=== PATIENT | male | born 1950 | race Caucasian/White ===

== ENCOUNTER 2016-11-05 07:57 | Emergency (ER) | payer MEDICARE ==
[~2016-11-05] VITALS: Ht 185.4 cm; Wt 117.0 kg
[~2016-11-05 07:57] MED LIST: LISI-363 PO
[2016-11-05 08:02] VITALS: BP 154/84; PULSE 76; RESP 16; TEMP 98.4; O2SAT 99
[2016-11-05] MEDS ORDERED: LISI-515 PO (08:13)
[2016-11-05 08:20] VITALS: BP 127/81; PULSE 75; RESP 18; O2SAT 98
--- NOTE | 2016-11-05 08:45 | PD ---
HPI Chief Complaint: Numbness/Tingling Time Seen by Provider: 08:19 Travel History International Travel<30 days: No Contact w/Intl Traveler<30days: No Traveled to known affect area: No History of Present Illness HPI This patient complains of paresthesias in his right hand. Duration 2 hours. He has no muscle weakness or sensory loss. He has chronic neck problems with chronic pain and stiffness. He has disc herniation at C5. His at 3 facet injections at [facility]. He often gets tightness and mild paresthesias in the region of the right upper arm and right lower arm. However this was more pronounced than usual. He is not having headache or head injury. No mental status changes. No alleviating factors. Symptoms severity is mild. PFSH Past Medical History Hx Anticoagulant Therapy: No Arthritis: No Asthma: No Autoimmune Disease: No Blood Disorders: No Anxiety: No Depression: No Heart Rhythm Problems: No Cancer: No Cardiovascular Problems: Yes (HTN ) High Cholesterol: No Chemotherapy: No Chest Pain: No Congestive Heart Failure: No COPD: No Cerebrovascular Accident: No Diabetes: No Endocrine: No GERD: No Glaucoma: No Genitourinary: No Headaches: No Hepatitis: No Hiatal Hernia: No Hypertension: Yes Immune Disorder: No Kidney Stones: No Musculoskeletal: No Neurologic: No Psychiatric: No Respiratory: No Myocardial Infarction: No Radiation Therapy: No Renal Failure: No Seizures: No Sickle Cell Disease: No Sleep Apnea: No Thyroid Disease: No Ulcer: No Past Surgical History Abdominal Surgery: No AICD: No Cardiac Surgery: No Ear Surgery: No Endocrine Surgery: No Eye Surgery: No Genitourinary Surgery: No Gynecologic Surgery: No Joint Replacement: No Oral Surgery: No Pacemaker: No Thoracic Surgery: No Other Surgery: Yes (DENTAL IMPLANTS ) Social History Alcohol Use: Yes (OCC) Tobacco Use: No Substance Use: No Allergies-Medications (Allergen,Severity, Reaction): Coded Allergies: [place] (Verified Allergy, Unknown, Hives, 11/05/16) Reported Meds & Prescriptions Reported Meds & Active Scripts Active Reported Lisinopril 20 Mg Tab 20 Mg PO DAILY Review of Systems General / Constitutional: No: Fever Eyes: No: Visual changes HENT: No: Headaches Cardiovascular: No: Chest Pain or Discomfort Respiratory: No: Shortness of Breath Gastrointestinal: No: Abdominal Pain Genitourinary: No: Dysuria Musculoskeletal: No: Pain Skin: No Rash Neurologic: Positive: Paresthesia, No: Weakness Psychiatric: No: Depression Endocrine: No: Polydipsia Hematologic/Lymphatic: No: Easy Bruising Physical Exam Narrative GENERAL: Well-nourished, well-developed patient in no apparent distress. SKIN: Focused skin assessment reveals no rash and nodules. Skin is Warm and dry. HEAD: Atraumatic. Normocephalic. EYES: Pupils equal and round. No scleral icterus. No injection or drainage. ENT: No nasal bleeding or discharge. Mucous membranes pink and moist. NECK: Trachea midline. No JVD. No midline tenderness CARDIOVASCULAR: Regular rate and rhythm. No murmur appreciated. RESPIRATORY: No accessory muscle use. Clear to auscultation. Breath sounds equal bilaterally. GASTROINTESTINAL: Abdomen soft, non-tender, nondistended. Hepatic and splenic margins not palpable. MUSCULOSKELETAL: No obvious deformities. No clubbing. No cyanosis. No edema. NEUROLOGICAL: Awake and alert. No obvious cranial nerve deficits. Motor grossly within normal limits. Normal speech. Sensation is intact to sharp and light touch. He has subjective paresthesias in the right hand rather diffusely that started about the level of the wrist. PSYCHIATRIC: Appropriate mood and affect; insight and judgment normal. Data Data Last Documented VS Vital Signs Date Time Temp Pulse Resp B/P Pulse Ox O2 Delivery O2 Flow Rate FiO2 11/05/16 08:20 75 18 127/81 98 11/05/16 08:[address] Brain W/O Iv Contrast(Rout) (11/05/16 ) [facility] Medical Decision Making Medical Screen Exam Complete: Yes Emergency Medical Condition: Yes Medical Record Reviewed: Yes Differential Diagnosis Paresthesia, neuropathy, disc herniation, CVA Narrative Course I have reviewed the patient's electronic medical record. Reviewed his 2015 visit when he had extensive workup for similar presentation on the left side. He had a one-time follow-up with Dr. Reyna afterwards but hasn't been back since No objective findings on exam He has normal vital signs Brain CT is discussed with radiologist Dr. olmedo. There is nothing acute. This patient's symptoms seem consistent with a peripheral neuropathy and not a acute stroke. When I reassessed him his symptoms have completely resolved and he says his paresthesias gone. I don't think he requires admission for neurologic evaluation. He should follow -up with a neurologist He plans to call Dr. Reyna who he saw in the past on a one-time basis Diagnosis Primary Impression: Peripheral neuropathy Qualified Code: G58.8 - Other mononeuropathy Additional Impression: Paresthesia of arm Additional Instructions: Follow-up with primary care and neurologist Med/Other Pt SpecificInfo: Other Disposition: 01 DISCHARGE HOME Condition: Stable Chandan Clayton MD Nov 05, 2016 08:45
--- NOTE | 2016-11-05 09:08 | RADRPT ---
EXAM DATE/TIME: 11/05/2016 08:53 [facility] COMPARISON: CT BRAIN W/O CONTRAST, December 31, 2014, 13:06. INDICATIONS : Right arm weakness. RADIATION DOSE: 56.35 CTDIvol (mGy) MEDICAL HISTORY : Cardiovascular disease. Hypertension. SURGICAL HISTORY : None. ENCOUNTER: Initial ACUITY: 1 day PAIN SCALE: 0/10 LOCATION: cranial TECHNIQUE: Multiple contiguous axial images were obtained of the head. Using automated exposure control and adj ustment of the mA and/or kV according to patient size, radiation dose was kept as low as reasonably a chievable to obtain optimal diagnostic quality images. DICOM format image data is available electro nically for review and comparison. FINDINGS: CEREBRUM: The ventricles are normal for age. No evidence of midline shift, mass lesion, hemorrhage or acute in farction. No extra-axial fluid collections are seen. POSTERIOR FOSSA: The cerebellum and brainstem are intact. The 4th ventricle is midline. The cerebellopontine angle i s unremarkable. EXTRACRANIAL: The visualized portion of the orbits is intact. SKULL: The calvaria is intact. No evidence of skull fracture. CONCLUSION: Negative for an acute process. Previous MRI had read suspicion of demyelinating proc ess. Hang Hdz MD FACR on November 05, 2016 at 9:05 Board Certified Radiologist. This report was verified electronically.
== END 2016-11-05 12:05 | disposition home or self-care (01) ==
LOC: NEPC 07:57
DX: G62.9 Polyneuropathy, unspecified (principal); R20.9 Unspecified disturbances of skin sensation; I10 Essential (primary) hypertension; Z79.899 Other long term (current) drug therapy
CPT/HCPCS: 70450; 99284

== ENCOUNTER 2017-01-21 13:31 | Emergency (ER) | payer MEDICARE ==
[~2017-01-21] VITALS: Ht 188 cm; Wt 115.0 kg
[~2017-01-21 13:31] MED LIST changes: -LISI-363 PO; +LISI-515 PO
[2017-01-21 13:33] VITALS: BP 139/80; PULSE 99; RESP 17; TEMP 98; O2SAT 99
[2017-01-21] MEDS ORDERED: AMOXICILLIN/CLAVULANATE K 875 MG TAB PO ONE (14:00)
[2017-01-21] MEDS ORDERED: TETANUS/DIPHTHERIA TOXOID ADULT 0.5 ML VIAL IM ONE (14:00)
[2017-01-21] MEDS ORDERED: AUGM875T3 PO (14:05)
[2017-01-21] MEDS ORDERED: IBUP800T23 PO (14:05)
--- NOTE | 2017-01-21 14:05 | PD ---
HPI Chief Complaint: Laceration/Skin Injury Time Seen by Provider: 13:55 Travel History International Travel<30 days: No Contact w/Intl Traveler<30days: No Traveled to known affect area: No History of Present Illness HPI Patient is a 66-year-old male presenting to emergency evaluation of a laceration to his right wrist that he sustained as result of a dog bite. Patient states his own dog bit him when he got spooked. Dog was up-to-date with immunizations. Patient is uncertain when his last tetanus vaccine was administered. He reports minimal pain. He denies any weakness or paresthesia. PFSH Past Medical History Hx Anticoagulant Therapy: No Arthritis: No Asthma: No Autoimmune Disease: No Blood Disorders: No Anxiety: No Depression: No Heart Rhythm Problems: No Cancer: No Cardiovascular Problems: No High Cholesterol: No Chemotherapy: No Chest Pain: No Congestive Heart Failure: No COPD: No Cerebrovascular Accident: No Diabetes: No Endocrine: No GERD: No Glaucoma: No Genitourinary: No Headaches: No Hepatitis: No Hiatal Hernia: No Hypertension: Yes Immune Disorder: No Kidney Stones: No Musculoskeletal: No Neurologic: No Psychiatric: No Respiratory: No Myocardial Infarction: No Radiation Therapy: No Renal Failure: No Seizures: No Sickle Cell Disease: No Sleep Apnea: No Thyroid Disease: No Ulcer: No ?: Not Past Surgical History Abdominal Surgery: No AICD: No Cardiac Surgery: No Ear Surgery: No Endocrine Surgery: No Eye Surgery: No Genitourinary Surgery: No Gynecologic Surgery: No Hysterectomy: No Joint Replacement: No Oral Surgery: No Pacemaker: No Thoracic Surgery: No Other Surgery: Yes (DENTAL IMPLANTS ) Social History Alcohol Use: Yes (OCC) Tobacco Use: No Substance Use: No Allergies-Medications (Allergen,Severity, Reaction): Coded Allergies: frances (Unverified Allergy, Unknown, Hives, 01/21/17) Reported Meds & Prescriptions Reported Meds & Active Scripts Active Ibuprofen 800 Mg Tab 800 Mg PO Q8H PRN Augmentin (Amoxicillin-Clavulanate) 875-125 Mg Tab 1 Tab PO BID Reported Lisinopril 20 Mg Tab 20 Mg PO DAILY Review of Systems Except as stated in HPI: all other systems reviewed are Neg Skin: Positive Other (laceration, dog bite) Physical Exam Narrative GENERAL: Well-developed, well-nourished, alert male. Resting comfortably. Distress. SKIN: Warm and dry. 3 cm superficial laceration to the inner aspect of the right wrist, there is a 1 cm skin avulsion proximal to the laceration. HEAD: Normocephalic. EYES: No scleral icterus. No injection or drainage. NECK: Supple, trachea midline. No JVD or lymphadenopathy. CARDIOVASCULAR: Regular rate and rhythm without murmurs, gallops, or rubs. RESPIRATORY: Breath sounds equal bilaterally. No accessory muscle use. GASTROINTESTINAL: Abdomen soft, non-tender, nondistended. MUSCULOSKELETAL: No cyanosis, or edema. Full range of motion right hand, 5/5 front elevator operator strength. 2+ radial pulse. BACK: Nontender without obvious deformity. No CVA tenderness. Data Data Last Documented VS Vital Signs Date Time Temp Pulse Resp B/P (MAP) Pulse Ox O2 Delivery O2 Flow Rate FiO2 01/21/17 13:33 98.0 99 17 139/80 (99) 99 Orders Orders Amoxicil-Clavulanate (Augmentin) (01/21/17 14:00) Tetanus/Diphtheria Tox Adult (Tetanus/Di (01/21/17 14:00) MDM Medical Decision Making Medical Screen Exam Complete: Yes Emergency Medical Condition: Yes Interpretation(s) Vital Signs Date Time Temp Pulse Resp B/P (MAP) Pulse Ox O2 Delivery O2 Flow Rate FiO2 01/21/17 13:33 98.0 99 17 139/80 (99) 99 Differential Diagnosis Tendon injury versus laceration versus puncture wound versus Narrative Course Patient is 66-year-old male presenting for evaluation after a dog bite was sustained prior to arrival. Child is up-to-date with immunizations, patient was given tetanus vaccine emergency department. Patient's vital signs are stable. He is neurovascularly intact. Please see procedure performed laceration repair. Patient was given first dose of Augmentin in the emergency department. He was given another prescription complete full course of therapy. He was educated on the signs and symptoms of infection. He was advised to just only removed in 7-10 days. He is encouraged to return to emergency department follow-up with his primary doctor. Patient verbalized understanding of instructions. Patient stable for discharge. Procedures Procedure Narrative LACERATION LOCATION: Right wrist LENGTH: 3 cm NUMBER OF STITCHES/MILE: 4 stitches REPAIR: The area of the laceration was prepped with Betadine and sterilely draped. The laceration was infiltrated with 1% Xylocaine. The wound was copiously irrigated and explored without evidence of foreign body, tendon injury or neurovascular injury. The wound was closed using 4-0 Ethilon. This was a 1 layer repair. A sterile dressing was applied. The patient was advised to keep the dressing clean and dry. Patient tolerated the procedure well. Diagnosis Primary Impression: Dog bite Qualified Codes: W54.0XXA - Bitten by dog, initial encounter Additional Impression: Laceration of wrist Qualified Codes: S61.511A - Laceration without foreign body of right wrist, initial encounter Referrals: Primary Care Physician 1 week Patient Instructions: Animal Bite (ED), Care For Your Stitches (DC), General Instructions Additional Instructions: Written instructions given to patient on discharge Med/Other Pt SpecificInfo: Prescription(s) given Scripts Ibuprofen (Ibuprofen) 800 Mg Tab 800 MG PO Q8H Y for Pain/Inflammation, #30 TAB 0 Refills Prov: Stephanie Stanton 01/21/17 Amoxicillin-Clavulanate (Augmentin) 875-125 Mg Tab 1 TAB PO BID for Infection, #20 TAB 0 Refills Prov: Stephanie Stanton 01/21/17 Disposition: 01 DISCHARGE HOME Condition: Stable Stephanie Stanton Jan 21, 2017 14:05
== END 2017-01-21 14:47 | disposition home or self-care (01) ==
LOC: EDTENT 13:31
DX: S61.511A Laceration without foreign body of right wrist, initial encounter (principal); I10 Essential (primary) hypertension; Z23 Encounter for immunization; W54.0XXA Bitten by dog, initial encounter
CPT/HCPCS: 12002; 90471; 90714

== ENCOUNTER → 2017-07-11 | Day surgery (SDC) | payer MEDICARE, BC ==
[~2017-07-11] VITALS: Ht 188 cm; Wt 113.5 kg
[~2017-07-11] MED LIST changes: +*ONDANSETRON 4 MG VIAL PERIprocedural Use ONLY ONE; +*morphine SULFATE 4 MG/ML PERIprocedure ONLY ONE; +ACETAMINOPHEN/HYDROcodone 325 MG/5 MG TAB ONE; +AMPICILLIN-SULBACTAM INJ 3 GM VIAL IV ONE; +AMPICILLIN-SULBACTAM INJ 3 GM in SODIUM CHLORIDE 0.9% INJ 100 ML IV ONE; +AUGM875T3 PO; +BACITRACIN TOP OINT 15 GM TUBE ONE; +BUPIVACAINE HCL PF 0.5% 30 ML VIAL ONE; +CHLORHEXIDINE GLUCONATE 2 % 1 PACK (2 CLOTHS) TOPICAL PRN; +DEXAMETHASONE SOD PHOS 4 MG/ML VIAL IV ONE; +DO NOT ADM ANY ANTICOAGULANT DRUGS PRN; +IBUP1TAB7 PO; +LACTATED RINGER'S 1000 ML IV PRN; +LIDOCAINE HCL 1% 20 ML VIAL ONE; +LIDOCAINE HCL 1% 30 ML VIAL INFIL ONE; +LIDOCAINE HCL 1% PF 5 ML SYRINGE OTHER ONE; +LIDOCAINE HCL 2% 50 ML VIAL ONE; +LISI10TA3 PO; +METOPROLOL TARTRATE 25 MG TAB PO PRN; +MIDAZOLAM HCL 2 MG/2 ML VIAL ONE; +MORPHINE SULFATE 4 MG/ML INJ IV PUSH ONE; +NEOMYCIN/POLYMYXIN 1 ML G.U. IRRIGANT ONE; +ONDANSETRON HCL 4 MG/2 ML VIAL IV ONE; +ONDANSETRON HCL 4 MG/2 ML VIAL IV PUSH ONE; +PHENYLEPH/NS 1000 MCG/10 ML SYR IV ONE; +POVIDONE IODINE 5% (ANTISEPSIS KIT) 4 APPLICATIONS EACH NARE PRN; +PROCHLORPERAZINE INJ 10 MG/2 ML VIAL ONE; +PROPOFOL 200 MG/20 ML AMP IV ONE; +SODIUM CHLORID 0.9% 500 ML IV PRN; +ceFAZolin 2 GM PREMIX 50 ML IV ONE; +ePHEDrine/NS 25 MG/5 ML SYRINGE IV ONE
[2017-07-11 10:06] VITALS: BP 170/86; PULSE 77; RESP 20; TEMP 98.7; O2SAT 100
--- NOTE | 2017-07-11 10:59 | RADRPT ---
EXAM DATE/TIME: 07/11/2017 10:31 [facility] COMPARISON: No previous studies available for comparison. INDICATIONS : Left hand pain. Laceration to left hand, second digit. MEDICAL HISTORY : None. SURGICAL HISTORY : None. ENCOUNTER: Initial ACUITY: 1 day PAIN SCORE: 6/10 LOCATION: Left hand, second digit FINDINGS: Examination of the second digit of the left hand demonstrates partial soft tissue amputation of the t ip of the second finger. There is a small bone fragment placed radially. Rest of study is unremarkabl e.. CONCLUSION: Soft tissue laceration of the tip of the second finger. Rodney Moon MD on July 11, 2017 at 10:57 Board Certified Radiologist. This report was verified electronically.
--- NOTE | 2017-07-11 11:21 | PD ---
HPI Chief Complaint: Injury Time Seen by Provider: 10:19 Travel History International Travel<30 days: No Contact w/Intl Traveler<30days: No Traveled to known affect area: No History of Present Illness HPI 67-year-old male came to the emergency room with history of injuring his left index finger while trying to hammer and nail and accidentally hammering his finger. This happened just prior to coming to the emergency room. Patient is complaining of some pain. He is right handed. There is some active bleeding. Patient wrapped it with a kitchen towel and came to the emergency room. His last tetanus was in 2011. Vital signs otherwise stable. Patient is not on any blood thinners. He is not a smoker. [facility] Past Medical History Narrative Medical List of his past medical, surgical, social and family history is reviewed from the nursing note. Hx Anticoagulant Therapy: No Arthritis: No Asthma: No Autoimmune Disease: No Blood Disorders: No Anxiety: No Depression: No Heart Rhythm Problems: No Cancer: No Cardiovascular Problems: No High Cholesterol: No Chemotherapy: No Chest Pain: No Congestive Heart Failure: No COPD: No Cerebrovascular Accident: No Diabetes: No Endocrine: No GERD: No Glaucoma: No Genitourinary: No Headaches: No Hepatitis: No Hiatal Hernia: No Hypertension: Yes Immune Disorder: No Kidney Stones: No Musculoskeletal: No Neurologic: No Psychiatric: No Respiratory: No Myocardial Infarction: No Radiation Therapy: No Renal Failure: No Seizures: No Sickle Cell Disease: No Sleep Apnea: No Thyroid Disease: No Ulcer: No Tetanus Vaccination: < 5 Years Influenza Vaccination: Yes Past Surgical History Abdominal Surgery: No AICD: No Cardiac Surgery: No Ear Surgery: No Endocrine Surgery: No Eye Surgery: No Genitourinary Surgery: No Gynecologic Surgery: No Hysterectomy: No Joint Replacement: No Oral Surgery: No Pacemaker: No Thoracic Surgery: No Other Surgery: Yes (DENTAL IMPLANTS ) Social History Alcohol Use: Yes (OCC) Tobacco Use: No Substance Use: No Allergies-Medications (Allergen,Severity, Reaction): Coded Allergies: frances (Unverified Allergy, Unknown, Hives, 07/11/17) Comments List of his allergies reviewed from the nursing note. Reported Meds & Prescriptions Reported Meds & Active Scripts Active Reported Lisinopril 10 Mg Tab 10 Mg PO DAILY Narrative Medication List of his home medications reviewed from the nursing note. Review of Systems Except as stated in HPI: all other systems reviewed are Neg Physical Exam Narrative GENERAL: Awake, alert, no obvious distress SKIN: Focused skin assessment warm/dry. Left index fingertip is macerated with some exposed bone and oozing blood. No nail can be seen. HEAD: Atraumatic. Normocephalic. EYES: Pupils equal and round. No scleral icterus. No injection or drainage. ENT: No nasal bleeding or discharge. Mucous membranes pink and moist. NECK: Trachea midline. No JVD. CARDIOVASCULAR: Regular rate and rhythm. No murmur appreciated. RESPIRATORY: No accessory muscle use. Clear to auscultation. Breath sounds equal bilaterally. GASTROINTESTINAL: Abdomen soft, non-tender, nondistended. Hepatic and splenic margins not palpable. MUSCULOSKELETAL: No obvious deformities. No clubbing. No cyanosis. No edema. NEUROLOGICAL: Awake and alert. No obvious cranial nerve deficits. Motor grossly within normal limits. Normal speech. PSYCHIATRIC: Appropriate mood and affect; insight and judgment normal. Data Data Last Documented VS Vital Signs Date Time Temp Pulse Resp B/P (MAP) Pulse Ox O2 Delivery O2 Flow Rate FiO2 07/11/17 10:09 18 100 Room Air 07/11/17 10:06 98.7 77 170/86 (114) Orders Orders Finger ([id number]) (07/11/17 ) Cefazolin 2 Gm Premix (Ancef 2 Gm Premix (07/11/17 10:30) Morphine Inj (Morphine Inj) (07/11/17 10:30) Ondansetron Inj (Zofran Inj) (07/11/17 10:30) Lidocaine 1% Inj (Xylocaine 1% Inj) (07/11/17 11:15) Lidocaine 1% Inj (Xylocaine 1% Inj) (07/11/17 11:33) Ampicillin-Sulbactam Inj (Unasyn Inj) (07/11/17 11:45) Morphine Inj (Morphine Inj) (07/11/17 11:45) Lidocaine 1% Inj (Xylocaine 1% Inj) (07/11/17 11:35) Diet Npo (07/11/17 Lunch) Admit Order (Ed Use Only) (07/11/17 12:07) MDM Medical Decision Making Medical Screen Exam Complete: Yes Emergency Medical Condition: Yes Medical Record Reviewed: Yes Differential Diagnosis Distal fingertip amputation, distal phalanx fracture Narrative Course 11:17 AM x-ray shows the distal tip of the soft tissue amputated. The bone tip of the distal phalanx is exposed. I will repair the wound. Please refer to my procedure note. Patient was given antibiotic IV and pain medication. 11:33 AM the hand Surgeon Dr. Padilla called back and is considering taking the patient to the OR. Meanwhile the patient just confessed that his dog bit the fingertip off when he was trying to get the food bowl from him. He didn't say anything initially because he didn't want his dog to get in trouble. I will order IV Unasyn knowing this at this point and some more pain medication. Patient says the pain is coming back. 11:56 AM next patient will be taken to the OR by the hand surgeon. He wants the patient nothing by mouth in the meanwhile. Procedures EKG Prior to Arrival: No Physician Communication Physician Communication Dr. Padilla Diagnosis Primary Impression: Finger amputation, traumatic Qualified Codes: S68.119A - Complete traumatic metacarpophalangeal amputation of unspecified finger, initial encounter Additional Impression: Dog bite Qualified Codes: W54.0XXA - Bitten by dog, initial encounter Admitting Information Admitting Physician Requests: Observation Troy Fraire MD Jul 11, 2017 11:21
--- NOTE | 2017-07-11 14:56 | MB ---
cc: Rick Boykin MD DATE OF CONSULT: 07/11/2017 REASON FOR CONSULTATION: Left index finger injury. HISTORY OF PRESENT ILLNESS: The patient is a 67-year-old [id number] male who presented with complaints of laceration of the left index finger this morning. Patient states he has a bulldog, which lacerated the left index finger. Patient complains of a wound over the left index finger with associated bleeding. He also complains of loss of nail bed. Denies any other injuries. Denies any tingling or numbness over the pulp region. PAST MEDICAL AND SURGICAL HISTORY: Reviewed and nonsignificant. PHYSICAL EXAMINATION: GENERAL: Patient is alert, oriented x3. EXTREMITIES: Examination of left hand/index finger reveals a dorsal oblique/transverse amputation over the left index fingertip involving the hyponychium and the nail bed. There is loss of nail plate and the laceration extends to the nail bed region. Mild oozing from the region noted. No evidence of nail plate noted. Exposed distal phalanx noted over the tip. The patient has intact circulation over the pulp region. He has intact sensation over the pulp. He has intact flexion and extension at the index finger distal interphalangeal joint. IMAGING: X-rays of the left hand/index finger reveals transverse amputation through the soft tissue and distal phalanx tuft fracture left index finger. ASSESSMENT: A 67-year-old male with partial traumatic amputation left index fingertip with exposed distal phalanx. PLAN: To take the patient emergently for wash debridement now, provision amputation versus flap closure of the left index finger. Patient has been explained risks and benefits of the procedure. Rick Boykin MD SE/jewels , 02:36 PM , 02:55 PM
--- NOTE | 2017-07-11 16:12 | PD.OP ---
Operative Report Preoperative Diagnosis: (1) Partial traumatic transphalangeal amputation of left index finger, initial encounter Postoperative Diagnosis: (1) Partial traumatic transphalangeal amputation of left index finger, initial encounter Procedure: exploration, wash, debridement and V-Y plasty flap closure left index finger Anesthesia: general Surgeon: Rick Boykin Rfid Systems Engineer(s): tory Operation and Findings: dorsal oblique amputation with loss of hyponychium, nail plate and distal half of the nail bed distal phalanx tuft fracture left index finger Rick Boykin MD Jul 11, 2017 16:12
--- NOTE | 2017-07-11 17:38 | MP ---
cc: Rick Boykin MD DATE OF OPERATION: 07/11/2017 PREOPERATIVE DIAGNOSIS: Partial traumatic amputation, left index fingertip. POSTOPERATIVE DIAGNOSIS: Partial traumatic amputation with exposed distal phalanx, left index fingertip. PROCEDURE: Exploration, wash, debridement and V-Y plasty flap closure, left index finger. SURGEON: Rick Connolly MD ANESTHESIA: General. ESTIMATED BLOOD LOSS: Minimal. TOURNIQUET: 46 minutes at 250 mmHg. COMPLICATIONS: None. The patient was taken to PACU in stable condition. The patient is a 67-year-old male who presented to the ED with complaints of dog bite to the left index finger this morning. On examination, he had a dorsal oblique amputation with the loss of hyponychium, nail plate and nail bed with exposed distal phalanx. X-ray showed amputation of the soft tissue with open fracture of the distal phalanx tuft. Patient was consented for exploration, revision amputation, possible flap closure left index finger. Patient was explained the risks and benefits of the procedure. INTRAOPERATIVE FINDINGS: Complete loss of the nail plate, complete loss of distal half of the nail bed with exposed dorsal and distal surface of the distal phalanx and loss of distal tuft of the distal phalanx. Partial loss of the hyponychium was also noted. The tip of the distal phalanx was rongeured to obtain closure of the bone because of loss of distal half of nail plate and inability to mobilize the remaining pulp to cover the bone. Decision was made to proceed with V-Y plasty. PROCEDURE: Patient was brought to the operating room. Under general anesthesia, the left upper extremity was thoroughly prepped and draped. Skin incision was marked in an inverted V fashion over the pulp at the base starting at the partial traumatic amputation site. The limb was exsanguinated using an Esmarch tourniquet, tourniquet inflated to 250 mmHg. Incision was then made over the proposed incision site where soft tissue dissection was carried out. The bands over the pulp tissue were released with sharp dissection. The flap was then elevated from the distal phalanx volar surface by sharp dissection. All the bands holding the flap were transected. The neurovascular bundle was protected. The flap was then mobilized. I was able to obtain complete coverage of the distal phalanx after mobilization of the flap. Initially the V was converted as a Y and 2 horizontal mattress stitches were applied at the proximal part of the incision. The flap was then mobilized and held to the dorsal aspect by 5-0 nylon stitch through the remaining nail bed. The rest of the incision was closed with multiple 5-0 nylon stitches in a horizontal mattress interrupted fashion. Prior to flap closure, the wound was thoroughly washed with normal saline mixed with irrigant. About 1 liter of solution was used. After obtaining closure of the distal phalanx, the tourniquet was deflated, total tourniquet time was 46 minutes. Patient had delayed capillary refill of the flap. The stitch holding at the V-Y junction was removed. Partial filling of the flap was noted at the proximal half of the flap. The finger was kept warm with normal saline. The 2 distal-most sutures of the corners were then released and this was then followed by good capillary refill of the flap. After ensuring good capillary refill of the flap, Xeroform/Bacitracin dressing applied. Bulky finger dressing was applied, which was held in place by soft roll and a Kindra. Patient was in stable condition. Patient will be discharged home on p.o. antibiotics. I will see him in the office in 2-3 days' time. Rick Boykin MD SE/RAE/jones , 04:18 PM , 05:23 PM
[2017-07-11 18:30] VITALS: BP 120/53; PULSE 87; RESP 16; TEMP 98.5; O2SAT 96
== END | disposition home or self-care (01) ==
LOC: NEPD 09:54 → HSDC 12:08
PROVIDERS: ATTEND Surgery Surgery of the Hand
DX: S68.120A Partial traumatic metacarpophalangeal amputation of right index finger, initial encounter (principal); W54.0XXA Bitten by dog, initial encounter
CPT/HCPCS: 01830; 26952; 73140; 96365; 96367; 96375; 96376; 99284; J0295; J0690; J0780; J1100; J2250; J2270; J2370; J2405; J3010

== ENCOUNTER 2017-08-21 18:55 | Emergency (ER) | payer MEDICARE, BC ==
[~2017-08-21 18:55] MED LIST changes: -*ONDANSETRON 4 MG VIAL PERIprocedural Use ONLY ONE; -*morphine SULFATE 4 MG/ML PERIprocedure ONLY ONE; -ACETAMINOPHEN/HYDROcodone 325 MG/5 MG TAB ONE; -AMPICILLIN-SULBACTAM INJ 3 GM VIAL IV ONE; -AMPICILLIN-SULBACTAM INJ 3 GM in SODIUM CHLORIDE 0.9% INJ 100 ML IV ONE; -AUGM875T3 PO; -BACITRACIN TOP OINT 15 GM TUBE ONE; -BUPIVACAINE HCL PF 0.5% 30 ML VIAL ONE; -CHLORHEXIDINE GLUCONATE 2 % 1 PACK (2 CLOTHS) TOPICAL PRN; -DEXAMETHASONE SOD PHOS 4 MG/ML VIAL IV ONE; -DO NOT ADM ANY ANTICOAGULANT DRUGS PRN; -IBUP1TAB7 PO; -LACTATED RINGER'S 1000 ML IV PRN; -LIDOCAINE HCL 1% 20 ML VIAL ONE; -LIDOCAINE HCL 1% 30 ML VIAL INFIL ONE; -LIDOCAINE HCL 1% PF 5 ML SYRINGE OTHER ONE; -LIDOCAINE HCL 2% 50 ML VIAL ONE; -LISI-515 PO; -METOPROLOL TARTRATE 25 MG TAB PO PRN; -MIDAZOLAM HCL 2 MG/2 ML VIAL ONE; -MORPHINE SULFATE 4 MG/ML INJ IV PUSH ONE; -NEOMYCIN/POLYMYXIN 1 ML G.U. IRRIGANT ONE; -ONDANSETRON HCL 4 MG/2 ML VIAL IV ONE; -ONDANSETRON HCL 4 MG/2 ML VIAL IV PUSH ONE; -PHENYLEPH/NS 1000 MCG/10 ML SYR IV ONE; -POVIDONE IODINE 5% (ANTISEPSIS KIT) 4 APPLICATIONS EACH NARE PRN; -PROCHLORPERAZINE INJ 10 MG/2 ML VIAL ONE; -PROPOFOL 200 MG/20 ML AMP IV ONE; -SODIUM CHLORID 0.9% 500 ML IV PRN; -ceFAZolin 2 GM PREMIX 50 ML IV ONE; -ePHEDrine/NS 25 MG/5 ML SYRINGE IV ONE
[2017-08-21] MEDS ORDERED: SODIUM CHLORIDE 0.9% FLUSH 10 ML FLUSH IVF PRN (19:15)
[2017-08-21 19:35] LABS: AUTOMATED NEUTROPHIL # 4.3 TH/MM3 (1.8-7.7); BASOPHIL # 0.1 TH/MM3 (0-0.2); BASOPHIL % 0.7 % (0.0-2.0); EOSINOPHIL # 0.6 TH/MM3 (0-0.4); EOSINOPHIL % 6.8 % (0.0-4.0); HEMATOCRIT 46.9 % (39.0-51.0); HEMOGLOBIN 15.9 GM/DL (13.0-17.0); LYMPHOCYTE # 3.5 TH/MM3 (1.0-4.8); MEAN CELL VOLUME 87.5 FL (80.0-100.0); MEAN CORPUSCULAR HEMOGLOBIN 29.6 PG (27.0-34.0); MEAN CORPUSCULAR HGB CONC 33.8 % (32.0-36.0); MEAN PLATELET VOLUME 8.4 FL (7.0-11.0); MONO % 10.1 % (0.0-8.0); NEUT % 45.4 % (16.0-70.0); PLATELET COUNT 223 TH/MM3 (150-450); RED BLOOD COUNT 5.36 MIL/MM3 (4.50-5.90); RED CELL DISTRIBUTION WIDTH 13.7 % (11.6-17.2); WHITE BLOOD COUNT 9.4 TH/MM3 (4.0-11.0)
[2017-08-21 19:44] VITALS: O2SAT 100
[2017-08-21 19:45] VITALS: BP 162/85; PULSE 77; RESP 16; O2SAT 100
[2017-08-21 19:50] LABS: ALBUMIN 3.9 GM/DL (3.4-5.0); AST (GOT) 28 U/L (15-37); BICARBONATE 25.1 MEQ/L (21.0-32.0); BLOOD UREA NITROGEN 19 MG/DL (7-18); CALCIUM 8.6 MG/DL (8.5-10.1); CHLORIDE 109 MEQ/L (98-107); CREATININE 1.42 MG/DL (0.60-1.30); GLOMERULAR FILTRATION RATE 50 ML/MIN (>89); GLUCOSE,RANDOM 109 MG/DL (74-106); SODIUM (NA) 140 MEQ/L (136-145)
[2017-08-21 19:53] LABS: ALKALINE PHOSPHATASE 64 U/L (45-117); ALT (GPT) 35 U/L (12-78); TOTAL BILIRUBIN ADULT 0.3 MG/DL (0.2-1.0); TOTAL PROTEIN 7.1 GM/DL (6.4-8.2); TROPONIN I 0.05 NG/ML (0.02-0.05)
--- NOTE | 2017-08-21 20:25 | RADRPT ---
EXAM DATE/TIME: 08/21/2017 20:09 [facility] COMPARISON: No previous studies available for comparison. INDICATIONS : Dizziness, started having double vision this morning. RADIATION DOSE: 37.88 CTDIvol (mGy) MEDICAL HISTORY : Hypertension. SURGICAL HISTORY : None. ENCOUNTER: Initial ACUITY: 1 day PAIN SCALE: 0/10 LOCATION: cranial TECHNIQUE: Multiple contiguous axial images were obtained of the head. Using automated exposure control and adj ustment of the mA and/or kV according to patient size, radiation dose was kept as low as reasonably a chievable to obtain optimal diagnostic quality images. DICOM format image data is available electro nically for review and comparison. FINDINGS: CEREBRUM: The ventricles are normal for age. No evidence of midline shift, mass lesion, hemorrhage or acute in farction. No extra-axial fluid collections are seen. POSTERIOR FOSSA: The cerebellum and brainstem are intact. The 4th ventricle is midline. The cerebellopontine angle i s unremarkable. EXTRACRANIAL: The visualized portion of the orbits is intact. SKULL: The calvaria is intact. No evidence of skull fracture. CONCLUSION: Normal examination for a patient of this age. Robinson Phan MD on August 21, 2017 at 20:19 Board Certified Radiologist. This report was verified electronically.
[2017-08-21] MEDS ORDERED: GADODIAMIDE PF 287 MG/ML 20 ML VIAL (for RAD MRI) IVCONTRAST ONE (20:30)
--- NOTE | 2017-08-21 20:41 | PD ---
HPI Chief Complaint: Dizziness Time Seen by Provider: 19:10 Travel History International Travel<30 days: No Contact w/Intl Traveler<30days: No Traveled to known affect area: No History of Present Illness HPI Patient is a 67-year-old male who is coming in because today around 430 he woke up from a brief nap and had double vision he discontinued intermittently all the way up to the ER visit. He called a doctor Dr. Wong who sent him to the ER worried that this could be a stroke versus MS onset or Parkinson's onset. In the ER patient has no symptoms at this time he has monovision especially if he just holds hand over 1 he sees a single image from both eyes when he covers the other eye. Only on upper and lower movement of his eyes does he get the diplopia vertical tracking does not cause diplopia. Patient had recently had a night of nonstop stress due to the health arm and a brand-new car they just bought he was moving the car around from different trees try to prevent any injury to the car. Patient says he finally fell asleep briefly and when he woke up he had the symptoms denies hypertension denies chest pains denies shortness of breath denies head trauma patient only past medical history is hypertension for which he takes lisinopril. He also recently had an injury where he had to have part of his fingertip amputated due to his dog biting him severely and that episode led to the amputation and the finger is healing on the left index finger. 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 complete by his afebrile nontoxic- appearing these symptoms are intermittent in the ER mostly elicited what he focuses his lower vision PFSH Past Medical History Hx Anticoagulant Therapy: No Arthritis: No Asthma: No Autoimmune Disease: No Blood Disorders: No Anxiety: No Depression: No Heart Rhythm Problems: No Cancer: No Cardiovascular Problems: No High Cholesterol: No Chemotherapy: No Chest Pain: No Congestive Heart Failure: No COPD: No Cerebrovascular Accident: No Diabetes: No Endocrine: No GERD: No Glaucoma: No Genitourinary: No Headaches: No Hepatitis: No Hiatal Hernia: No Hypertension: Yes Immune Disorder: No Kidney Stones: No Musculoskeletal: No Neurologic: No Psychiatric: No Respiratory: No Myocardial Infarction: No Radiation Therapy: No Renal Failure: No Seizures: No Sickle Cell Disease: No Sleep Apnea: No Thyroid Disease: No Ulcer: No Past Surgical History Abdominal Surgery: No AICD: No Cardiac Surgery: No Ear Surgery: No Endocrine Surgery: No Eye Surgery: No Genitourinary Surgery: No Gynecologic Surgery: No Hysterectomy: No Joint Replacement: No Oral Surgery: No Pacemaker: No Thoracic Surgery: No Other Surgery: Yes (DENTAL IMPLANTS ) Social History Alcohol Use: Yes (OCC) Tobacco Use: No Substance Use: No Allergies-Medications (Allergen,Severity, Reaction): Coded Allergies: frances (Unverified Allergy, Unknown, Hives, 08/21/17) Reported Meds & Prescriptions Reported Meds & Active Scripts Active Reported Lisinopril 10 Mg Tab 10 Mg PO DAILY Review of Systems Except as stated in HPI: all other systems reviewed are Neg Eyes: Positive: Diploplia, Visual changes Physical Exam Narrative GENERAL: no acute distress, SKIN: Warm and dry. HEAD: Atraumatic. Normocephalic. EYES: Pupils equal and round. No scleral icterus. No injection or drainage. no obvious strabismus, when he focuses close on my finger brief Diplopia reports , no horizontal nystagmus no diplopia on horizontal gaze. diplopia brief corrects rapidly ENT: No nasal bleeding or discharge. Mucous membranes pink and moist. NECK: Trachea midline. No JVD. CARDIOVASCULAR: Regular rate and rhythm. RESPIRATORY: No accessory muscle use. Clear to auscultation. Breath sounds equal bilaterally. GASTROINTESTINAL: Abdomen soft, non-tender, nondistended. Hepatic and splenic margins not palpable. MUSCULOSKELETAL: Extremities without clubbing, cyanosis, or edema. No obvious deformities. NEUROLOGICAL: Awake and alert. No obvious cranial nerve deficits. Motor grossly within normal limits. Five out of 5 muscle strength in the arms and legs. Normal speech. PSYCHIATRIC: Appropriate mood and affect; insight and judgment normal. Data Data Last Documented VS Vital Signs Date Time Temp Pulse Resp B/P (MAP) Pulse Ox O2 Delivery O2 Flow Rate FiO2 08/21/17 23:05 08/21/17 19:45 77 16 100 Room Air Orders Orders Ct Brain W/O Iv Contrast(Rout) (08/21/17 ) Ecg Monitoring (08/21/17 19:12) Iv Access Insert/Monitor (08/21/17 19:12) Oximetry (08/21/17 19:12) Sodium Chloride 0.9% Flush (Ns Flush) (08/21/17 19:15) Complete Blood Count With Diff (08/21/17 19:13) Comprehensive Metabolic Panel (08/21/17 19:13) Ckmb (Isoenzyme) Profile (08/21/17 19:13) Troponin I (08/21/17 19:13) Lipase (08/21/17 19:13) I-Stat Profile (08/21/17 19:13) Westergren Sedimentation Rate (08/21/17 19:22) Mri Brain W/O Contrast (08/21/17 ) Mra Brain W/O Contrast (Cow) (08/21/17 ) CKMB (08/21/17 19:20) CKMB% (08/21/17 19:20) Mra Carotids W Contrast (08/21/17 ) Gadodiamide Pf Inj (Omniscan Pf Inj) (08/21/17 20:30) Troponin I (08/21/17 21:57) C-Reactive Protein (Crp) (08/21/17 22:10) Ed Discharge Order (08/21/17 22:59) Electrocardiogram (08/21/17 21:56) Labs Laboratory Tests Test 08/21/17 19:20 08/21/17 22:10 08/22/17 21:23 White Blood Count 9.4 TH/MM3 Red Blood Count 5.36 MIL/MM3 Hemoglobin 15.9 GM/DL Bedside Hemoglobin 15.3 G/DL Hematocrit 46.9 % Bedside Hematocrit 45.0 % Mean Corpuscular Volume 87.5 FL Mean Corpuscular Hemoglobin 29.6 PG Mean Corpuscular Hemoglobin Concent 33.8 % Red Cell Distribution Width 13.7 % Platelet Count 223 TH/MM3 Mean Platelet Volume 8.4 FL Neutrophils (%) (Auto) 45.4 % Lymphocytes (%) (Auto) 37.0 % Monocytes (%) (Auto) 10.1 % Eosinophils (%) (Auto) 6.8 % Basophils (%) (Auto) 0.7 % Neutrophils # (Auto) 4.3 TH/MM3 Lymphocytes # (Auto) 3.5 TH/MM3 Monocytes # (Auto) 1.0 TH/MM3 Eosinophils # (Auto) 0.6 TH/MM3 Basophils # (Auto) 0.1 TH/MM3 CBC Comment DIFF FINAL Differential Comment Erythrocyte Sedimentation Rate 2 mm/hr Bedside Sodium 139 MMOL/L Blood Urea Nitrogen 19 MG/DL Creatinine 1.42 MG/DL Random Glucose 109 MG/DL Total Protein 7.1 GM/DL Albumin 3.9 GM/DL Calcium Level 8.6 MG/DL Alkaline Phosphatase 64 U/L Aspartate Amino Transf (AST/SGOT) 28 U/L Alanine Aminotransferase (ALT/SGPT) 35 U/L Total Bilirubin 0.3 MG/DL Sodium Level 140 MEQ/L Potassium Level 4.2 MEQ/L Chloride Level 109 MEQ/L Carbon Dioxide Level 25.1 MEQ/L Bedside Potassium 4.2 MMOL/L Bedside Chloride 106 MMOL/L Anion Gap 6 MEQ/L Bedside Blood Urea Nitrogen 22 MG/DL Bedside Creatinine 1.4 MG/DL Estimat Glomerular Filtration Rate 50 ML/MIN Bedside Glucose 111 MG/DL Total Creatine Kinase 303 U/L Creatine Kinase MB 2.1 NG/ML Troponin I 0.05 NG/ML LESS THAN 0.02 NG/ML Lipase 149 U/L C-Reactive Protein LESS THAN 0.29 MG/DL Lab Scanned Report Lab Reports - Other [id number] [facility] Medical Decision Making Medical Screen Exam Complete: Yes Emergency Medical Condition: Yes Differential Diagnosis diplopia sent d by Dr Wong opthomology to Rule out CVA or MS or parkinson wrote a note we will CT and MRI to ddx CVA vs MS vs parkinson vs Myasthenia Graves other causes of diplopia Narrative Course Pt has MRI and MRA show stable areas of periventicular signal intensity and no change pt MRA neck no vascular issues and MRA brain no vascular issues I Called Dr Wong discussed findings and he wants pt to call in AM pt and agree Physician Communication Physician Communication Dr Wong Diagnosis Primary Impression: Diplopia Patient Instructions: Diplopia (ED), General Instructions Additional Instructions: Your MRI and MRA and CT were all negative your MRI of the brain shows the same stable periventricular signal intensity. Dr. Mesa is made aware of the findings I spoke with him. He should call him in the a.m. to arrange a follow- up. Return to the ER for any worsening symptoms you may cover 1 of your eyes if diplopia returns and his bothers you while driving. Get plenty of rest in the next 2 days and follow-up with Dr. Wong Disposition: 01 DISCHARGE HOME Condition: Good Gamaliel Rodríguez MD Aug 21, 2017 20:41
--- NOTE | 2017-08-21 21:05 | RADRPT ---
EXAM DATE/TIME: 08/21/2017 20:16 [facility] COMPARISON: No previous studies available for comparison. INDICATIONS : CVA. Diplopia. MEDICAL HISTORY : Hypertension. SURGICAL HISTORY : Left index finger. ENCOUNTER: Subsequent ACUITY: 1 day PAIN SCORE: 0/10 LOCATION: head. TECHNIQUE: Multiplanar, multisequence MRI of the brain was performed without contrast. FINDINGS: CEREBRUM: The ventricles are normal for age. No evidence of midline shift, mass lesion, hemorrhage or acute in farction. No extraaxial fluid collections are seen. The pituitary gland and suprasellar cistern are normal in configuration. WHITE MATTER: Mild signal abnormalities are seen in the white matter. POSTERIOR FOSSA: The cerebellum and brainstem are intact. The 4th ventricle is midline. The cerebellopontine angle is unremarkable. The cerebellar tonsils are normal in position. DIFFUSION IMAGING: No focal areas of restricted diffusion are seen. No evidence of acute infarction. EXTRACRANIAL: The visualized portions of the orbits and paranasal sinuses are unremarkable. CONCLUSION: 1. Mild white matter signal abnormalities unchanged since 2014, probably minimal ischemic demyelinati on. No acute findings. Specifically no recent infarct, mass effect or shift. Robinson Phan MD on August 21, 2017 at 20:59 Board Certified Radiologist. This report was verified electronically.
--- NOTE | 2017-08-21 21:07 | RADRPT ---
EXAM DATE/TIME: 08/21/2017 20:16 [facility] COMPARISON: MRA BRAIN W/O CONTRAST, December 31, 2014, 15:12. INDICATIONS : CVA. Diplopia. MEDICAL HISTORY : Hypertension. SURGICAL HISTORY : Left index finger. ENCOUNTER: Subsequent ACUITY: 1 day PAIN SCORE: 0/10 LOCATION: head. Please note a normal MRA of the brain does not entirely exclude the possibility of a small aneurysm, nor the possibility of distal intracranial vessel disease. TECHNIQUE: 3D time of flight MRA was performed. Source images, multiplanar STS MIP, and 3D volume MIP reconstru ctions were reviewed. FINDINGS: There is excellent visualization of the major intracranial arteries out to the second-order branch ve ssels. There is no evidence for aneurysm, vessel truncation or stenosis, and no evidence for vascula r malformation. CONCLUSION: Normal examination for a patient of this age. Robinson Phan MD on August 21, 2017 at 21:03 Board Certified Radiologist. This report was verified electronically.
--- NOTE | 2017-08-21 21:10 | RADRPT ---
EXAM DATE/TIME: 08/21/2017 20:16 [facility] COMPARISON: No previous studies available for comparison. INDICATIONS : Stenosis. CONTRAST: 20 cc Omniscan (gadodiamide) IV MEDICAL HISTORY : Hypertension. SURGICAL HISTORY : Left index finger. ENCOUNTER: Subsequent ACUITY: 1 day PAIN SCORE: 0/10 LOCATION: neck Percent stenosis is calculated using the diameter of the stenotic region over the diameter of the nor mal distal internal carotid artery. TECHNIQUE: Bolus infused MRA of the extracranial circulation was performed using a neurovascular coil. Post pro cessing was performed including rotating subvolume maximum intensity projections of each carotid marichuy ry, rotating full volume maximum intensity projections of both carotid arteries, sagittal and coronal sliding thin slab reformations of each carotid artery, and left oblique sliding thin slab reformatio n through the aortic arch to include the origin of the arch branch vessels. FINDINGS: AORTIC ARCH: There is a three vessel origin of the great vessels from the aorta. No evidence of ostial narrowing. RIGHT CAROTID: The common carotid artery is intact. The carotid bulb has a normal configuration without ulceration or narrowing. The internal carotid artery lumen is smooth without stenosis. The external carotid ar catrachito is intact. LEFT CAROTID: The common carotid artery is intact. The carotid bulb has a normal configuration without ulceration or narrowing. The internal carotid artery lumen is smooth without stenosis. The external carotid ar catrachito is intact. VERTEBRALS: The vertebral arteries have a symmetric diameter. No stenotic lesions are seen. CONCLUSION: Normal examination for a patient of this age. Robinson Phan MD on August 21, 2017 at 21:05 Board Certified Radiologist. This report was verified electronically.
[2017-08-21 22:45] LABS: C-REACTIVE PROTEIN LESS THAN 0.29 MG/DL (0.00-0.30)
[2017-08-21 22:48] LABS: TROPONIN I LESS THAN 0.02 NG/ML (0.02-0.05)
--- NOTE | 2017-08-22 20:38 | EKG ---
Date Performed: 08/21/2017 Time Performed: 21:56:45 PTAGE: 67 years EKG: Sinus rhythm WITH OCCASIONAL VENTRICULAR PREMATURE COMPLEXES LEFT ANTERIOR FASCICULAR BLOCK POSSIBLE INFERIOR LE CARDIAL INFARCTION Compared to previous tracing, PVCs are now seen ABNORMAL ECG NO PREVIOUS TRACING DOCTOR: David Valladares Interpretating Date/Time 08/22/2017 20:36:45
== END 2017-08-21 23:06 | disposition home or self-care (01) ==
LOC: NEPE 18:55
DX: H53.2 Diplopia (principal); I49.3 Ventricular premature depolarization; I44.4 Left anterior fascicular block; R94.31 Abnormal electrocardiogram [ECG] [EKG]; I10 Essential (primary) hypertension; Z79.899 Other long term (current) drug therapy
CPT/HCPCS: 70450; 70544; 70548; 70551; 80053; 82550; 82552; 83690; 84484; 85025; 85652; 86140; 93005; 99285; A9579; 80048